=== PATIENT | male | born 1940 | race Caucasian/White ===

== ENCOUNTER 2017-06-07 15:52 | Outpatient (CLI) | payer MEDICARE, BC | END 2017-06-07 15:53 | disposition home or self-care (01) | LOC: LABBT 15:52 | PROVIDERS: ATTEND Internal Medicine Cardiovascular Disease | DX: Z01.818 Encounter for other preprocedural examination (principal); I48.0 Paroxysmal atrial fibrillation ==

== ENCOUNTER 2017-06-15 06:05 | Day surgery (SDC) | payer MEDICARE, BC ==
[2017-06-15] MEDS ORDERED: Propofol 200 MG/20 ML VIAL ONE (07:59)
[2017-06-15] MEDS ORDERED: Lidocaine 1% PF 5 ML VIAL ONE (07:59)
--- NOTE | 2017-06-15 08:45 | SS ---
He was seen as an outpatient to undergo a low transesophageal echocardiogram to rule out evidence of left atrial appendage thrombus and also to evaluate valvular structures as well as left ventricular systolic function. His other admitting diagnoses include dyslipidemia, hypertension, and Parkinso n's disease, history of coronary disease, status post bypass surgery, status post pacemaker insertio n, benign prostatic hypertrophy, chronic back pain and mild depression. DISCHARGE DIAGNOSES: He was seen as an outpatient to undergo a low transesophageal echocardiogram t o rule out evidence of left atrial appendage thrombus and also to evaluate valvular structures as we ll as left ventricular systolic function. His other admitting diagnoses include dyslipidemia, hype rtension, and Parkinson's disease, history of coronary disease, status post bypass surgery, status p ost pacemaker insertion, benign prostatic hypertrophy, chronic back pain and mild depression. It should also be noted he had paroxysmal atrial fibrillation in the past, been treated by medical m anagement after cardioversion. He has also had undergone I believe possible ablations in the past, he has remained stable. He does have a history of sick sinus syndrome. He has remained stable today. He underwent a transesophageal echocardiogram today to rule out evide nce of left atrial appendage thrombus. FOLLOW UP: His followup will be with me in the next 1-2 months. He will continue his routine follo wups as per the check scaler with them. DISCHARGE MEDICATIONS: The same as his admission medications. These include Multaq 200 mg p.o. b.i .d. He will also continue taking his Flomax 0.4 mg capsules 1 every day, half an hour following the same meal, testosterone 100 mg per mL IM injections. He takes 0.5 mm every 2 weeks, Zetia 10 mg a day, tramadol 50 mg as needed, Welchol 620 mg 2 tablets three times a day, Sinemet 25/250 one three times daily, Wellbutrin-SR 150 mg 1 twice a day, orphenadrine citrate ER 100 mg in the morning and e vening as needed, gabapentin 100 mg daily as needed, CoQ10, Mucinex, Eliquis 5 mg b.i.d. and Multaq is 200 mg twice a day. Followup is as noted above. PROCEDURE: Transesophageal echocardiogram, no cardioversion was performed or indicated. HOSPITAL COURSE: This is a very pleasant 77-year-old gentleman who has been followed by me for jose luis ral years. He has history of coronary artery disease. He also has a history of atrial fibrillation and has undergone ablation. He has at least electrocardioversion of his atrial fibrillation in the past. He has had pacemaker insertion. He has had history of atrial flutter. He has had pulmonary vein isolations for his atrial fibrillation in 07/2016. He had converted back to atrial fibrillati on and underwent repeat electrical cardioversion. He then was seen in the office by the electrophys iologist and there was a question as to whether or not he may have any possible left atrial appendag e thrombus and whether or not he might be a candidate for stopping his Eliquis and to see how he was doing as far as his other medical management was concerned. Today he underwent the transesophageal echocardiogram and there was no indication that he had any left atrial appendage thrombus. He did very well during the transesophageal echocardiogram, his ejection fraction is 50-55% and he has done well for the procedure. Once he becomes more alert and stable, he can be discharged to home withou t any further changes in his regimen or medical management.
--- NOTE | 2017-06-15 10:49 | ECHO ---
PROCEDURE NOTE: Date: 06/15/17 PROCEDURE: Transesophageal echocardiogram. INDICATION FOR PROCEDURE: This is a 77-year-old gentleman with a history of paroxysmal atrial fibrillation. He has been mainta ining sinus rhythm after underwent electrical cardioversion back in October of this year and then agai n on 04/30/17. He has had no significant problems and he has been maintained on Multaq. The dose was decreased from 400 mg b.i.d. to 200 mg b.i.d. and he continues to do well. He was seen elected by rebecca safety belt installer and was advised to undergo a transesophageal echocardiogram to rule out evid ence of left atrial or left atrial appendage thrombus and also for evaluation of valvular structures and left ventricular systolic function. DETAILS OF PROCEDURE: The patient was taken to the recovery area, where he underwent short acting propofol. The transesop hageal echo probe was easily passed down the distal esophagus. IMPRESSION: 1. Normal left ventricular systolic function, ejection fraction of 50-55%. 2. Mild to moderate left atrial dilatation, up to 4.5 cm in diameter. 3. Moderate to severe mitral valve regurgitation. 4. Mild to moderate tricuspid valve regurgitation. 5. Trace aortic valve regurgitation. 6. No evidence of left atrial or left atrial appendage thrombus. It appears that the left atrial ap pendage may have been tied off during his bypass surgery. It only has a very, very small opening wit h just minimal flow. There is no indication of thrombus formation in this tiny area, but it is very difficult to see any specific opening to the left atrial appendage after a significant amount of christiano e was spent trying to locate the left atrial appendage. There were no complications or difficulties encountered during the procedure. He tolerated the proc edure well without difficulties or complications.
== END 2017-06-15 10:15 | disposition home or self-care (01) ==
LOC: CCL 06:05
PROVIDERS: ATTEND Internal Medicine Cardiovascular Disease
DX: I48.0 Paroxysmal atrial fibrillation (principal); I25.10 Atherosclerotic heart disease of native coronary artery without angina pectoris; G20 Parkinson's disease; F32.9 Major depressive disorder, single episode, unspecified; E78.5 Hyperlipidemia, unspecified; I10 Essential (primary) hypertension; Z79.01 Long term (current) use of anticoagulants; Z79.899 Other long term (current) drug therapy; Z95.0 Presence of cardiac pacemaker; Z95.1 Presence of aortocoronary bypass graft
CPT/HCPCS: 93312; J2001; J2704

== ENCOUNTER 2017-10-25 06:59 | Day surgery (SDC) | payer MEDICARE, BC ==
[2017-10-22 10:06] VITALS: BMI 26.0
[~2017-10-25 06:59] MED LIST: FLU VACC TS2017-18 (>65YR) 0.5 ML SYRINGE IM ONE
[2017-10-25] MEDS ORDERED: Iopamidol-M 200 41% 20 ML VIAL ONE (07:53)
[2017-10-25 07:58] VITALS: BP 133/81; TEMP 98.5
--- NOTE | 2017-10-25 14:34 | CT ---
LUMBAR MYELOGRAM AND POST MYELOGRAPHIC CT: HISTORY: TECHNIQUE: Informed consent was obtained from the patient. The right L4-L5 interlaminar space was localizing us ing fluoroscopy. A 1% Lidocaine solution was used to anesthetize the overlying soft tissues. A 22 g auge spinal needle was placed into the subarachnoid space. CSF returned through the needle. A total of 15 mL of Isovue-M 200 was injected into the subarachnoid space. There was some epidural flow of the contrast into the epidural space; however, adequate volume was seen in the subarachnoid space. Post myelographic CT images obtained. FINDINGS: T12-L1: Right anterior vertebral osteophytes seen. The central canal and neural foramen are patent. L1-L2: There is minimal facet hypertrophy. The central canal and neural foramen are patent. Vacuum disk change is seen at the intervertebral disk space. L2-L3: Vacuum disk change is seen. There are broad-based posterior osteophytes in the central canal , as well as osteophytes extending into the right and left L2-L3 far lateral recesses. There is comp ression of the thecal sac minimally, due to the epidural contrast; however, no significant degree of central spinal stenosis is seen. There is moderate left and mild right sided neural foraminal narrow ing, due to osteophyte encroachment. Marked L2-L3 intervertebral disk desiccation and gas is seen. L3-L4: There is marked disk desiccation. Irregularity involving the inferior endplate of L3 and the superior endplate of L4 is seen. There is a broad-based disk bulge with disk-osteophyte complex, ce ntrally, at L3-L4, compressing the thecal sac, resulting in moderate to severe central spinal stenosi s. There is bilateral facet hypertrophy seen. The degree of disk desiccation at L3-L4, as well as t he broad-based central disk osteophyte complex and subsequent stenosis, has significantly increased s viviana the previous comparison CT myelogram from 08/02/2012. There is significant neural foraminal yusuf rowing also seen due to the facet hypertrophy at L3-L4. L4-L5: There are some vacuum disk changes seen. There is a broad-based disk bulge present. No sign ificant degree of central or lateral recess stenosis is seen. There is moderate right and no signifi cant left-sided neural foraminal narrowing. L5-S1: Vacuum disk changes are seen at this level. There is increased sclerosis involving the infer ior endplate of L5 and the superior endplate of S1. Bilateral pars interarticularis defect is seen a t the L5 level. This appears to have been present on the previous exam. IMPRESSION: 1. Multilevel lumbar vacuum disk changes and disk degenerative changes. There is increasing central spinal stenosis at the L3-L4 level. 2. Increasing endplate and sclerotic changes at L5-S1. There continue to be bilateral pars defects, unchanged since the previous exam. POS: ANASTAS[place]
== END 2017-10-25 10:30 | disposition home or self-care (01) ==
LOC: RAD 06:59
PROVIDERS: ATTEND Neurological Surgery
PROC: B00B1ZZ Plain Radiography of Spinal Cord using Low Osmolar Contrast (ICD-10-PCS; principal; 2017-10-25)
DX: M51.16 Intervertebral disc disorders with radiculopathy, lumbar region (principal); M48.061 Spinal stenosis, lumbar region without neurogenic claudication; F32.9 Major depressive disorder, single episode, unspecified; I10 Essential (primary) hypertension; E78.2 Mixed hyperlipidemia; I49.5 Sick sinus syndrome; Z96.652 Presence of left artificial knee joint; Z98.890 Other specified postprocedural states
CPT/HCPCS: 62304; 72132